=== PATIENT | female | born 1955 | race African-American/Black ===

== ENCOUNTER 2018-05-20 10:56 | Emergency (ER) | payer BC ==
[~2018-05-20] VITALS: Ht 172.7 cm; Wt 72.1 kg
[2018-05-20] MEDS ORDERED: Norco 5mg/325mg tab ORAL ONE (12:15)
--- NOTE | 2018-05-20 13:41 | Diagnostic Imaging Report ---
Indication: Elbow trauma and pain Findings: 3 views of the right elbow were obtained. There is a relatively nondisplaced intra-articular fracture of the olecranon extending into the elbow joint. Soft tissue swelling noted. Bones are osteopenic. The humerus and radius appear intact. There is no malalignment. IMPRESSION: Acute fracture of the olecranon
--- NOTE | 2018-05-20 13:42 | Diagnostic Imaging Report ---
Indication: Right knee pain Knee pain/trauma 3 views of the right knee were obtained. Findings: The bones are osteopenic. There is no malalignment or fracture. Osteophyte formation and narrowing of the joint space in all 3 compartments demonstrated. No joint effusion appreciated. Under calcinosis noted. IMPRESSION: No acute fracture appreciated. Moderate arthrosis Chondrocalcinosis
[2018-05-20] MEDS ORDERED: IBUPROFEN600 MG ORAL (14:08)
[2018-05-20] MEDS ORDERED: NORCO 5-325 TA1 EACH ORAL (14:08)
--- NOTE | 2018-05-20 14:08 | Emergency Room Report ---
History of Present Illness General Chief Complaint: Multiple Trauma/Fall Source: Patient Present Illness HPI 62-year-old female presents to the emergency department complaining of 10 out of 10 in severity localized right elbow pain in addition to right knee pain status post mechanical slip and fall at a grocery store 2 days ago. Patient and his hitting her head she denies loss of consciousness and denies midline neck or back pain. Patient states that [id number] pain medications have not provided relief for her symptoms. Denies exacerbated upon palpation and movement of the right arm as well as walking and weightbearing. Denies numbness tingling or loss of sensation or gross motor movements of the extremities, incontinence of bowel or bladder. Denies CP, Palpitations, LOC, AMS, dizziness, Changes in Vision, weakness or a sudden severe headache. Allergies: Coded Allergies: No Known Allergies (Unverified , 05/20/18) Patient History Past Medical History: see triage record Past Surgical History: none Pertinent Family History: none Now: No Reviewed Nursing Documentation: PMH: Agreed; PSxH: Agreed Nursing Documentation-PMH Past Medical History: No History, Except For Hx Cardiac Problems: No Hx Hypertension: Yes Hx Pacemaker: No Hx Asthma: No Hx COPD: No Hx Diabetes: No Hx Cancer: No Hx Gastrointestinal Problems: No Hx Dialysis: No Hx Neurological Problems: No Hx Cerebrovascular Accident: No Hx Seizures: No Review of Systems All Other Systems: negative except mentioned in HPI Physical Exam Vital Signs Date Time Temp Pulse Resp B/P (MAP) Pulse Ox O2 Delivery O2 Flow Rate FiO2 05/20/18 11:09 98.0 77 18 117/77 95 Room Air 98.1 Sp02 EP Interpretation: reviewed, normal General Appearance: no apparent distress, alert, GCS 15, non-toxic, mild distress Head: normocephalic, atraumatic ENT: hearing grossly normal, normal voice Neck: full range of motion, no bony tend Respiratory: lungs clear, normal breath sounds, speaking full sentences Cardiovascular #1: regular rate, rhythm, normal capillary refill Musculoskeletal: back normal, gait/station normal, normal range of motion, swelling - right elbow, and lateral right knee, FROM ,no increased laxity to the right knee, negative anterior or posterior drawer sign. moderate TTP to the right lateral elbow, bruising also noted. Pain with ROM. Neurologic: alert, oriented x3, responsive, motor strength/tone normal, sensory intact, speech normal, grossly normal Psychiatric: judgement/insight normal Skin: normal color, no rash, warm/dry, well hydrated, other - bruising to the lateral/posterior right elbow. Medical Decision Making PA Attestation Dr. Coronel is my supervising Physician whom patient management has been discussed with. Diagnostic Impression: Primary Impression: Radial head fracture, closed Qualified Codes: S52.124A - Nondisplaced fracture of head of right radius, initial encounter for closed fracture Additional Impressions: Right knee sprain Qualified Codes: S83.91XA - Sprain of unspecified site of right knee, initial encounter Multiple contusions ER Course 62-year-old female presents to the emergency department complaining of 10 out of 10 in severity localized right elbow pain in addition to right knee pain status post mechanical slip and fall at a grocery store 2 days ago. Patient and his hitting her head she denies loss of consciousness and denies midline neck or back pain. Patient states that [id number] pain medications have not provided relief for her symptoms. Denies exacerbated upon palpation and movement of the right arm as well as walking and weightbearing. Denies numbness tingling or loss of sensation or gross motor movements of the extremities, incontinence of bowel or bladder. Denies CP, Palpitations, LOC, AMS, dizziness, Changes in Vision, weakness or a sudden severe headache. Ddx considered but are not limited to Fracture, dislocation, contusion, Sprain/ Strain/Spasm. Vital signs: are WNL, pt. is afebrile H&PE are most consistent with musculoskeletal injury will perform imaging to r/ o fractures/dislocations. ORDERS: - X-ray Right knee 3 views - negative for fx, Dislocation, or significant soft tissue injury, per preliminary read in ED, and signed by DAVID Aviles , my supervising physician has reviewed, and agrees with my interpretation. -X-ray Right elbow 3 views: POSITIVE for Radial head FX. ED INTERVENTIONS: - Pain medication PO short arm posterior Splint applied to the right elbow by headend technician. Pt. remains neurovascularly intact. - Right arm Sling applied by headend technician. Pt. remains neurovascularly intact. Xavier wrap applied to the right knee by headend technician. Pt. remains neurovascularly intact. -Patient is provided with crutches and instructed on their use d/w pt. ortho follow up. DISCHARGE: At this time pt. is stable for d/c to home. Will provide printed patient care instructions, and any necessary prescriptions. Care plan and follow up instructions have been discussed with the patient prior to discharge. Other X-Ray Diagnostic Results Other X-Ray Diagnostic Results #1: X-Ray ordered: Right Knee # of Views/Limited Vs Complete: 3 View Indication: Pain EP Interpretation: Yes PA Xray: Interpretation reviewed, by supervising MD, and agrees with findings. Interpretation: no dislocation, no soft tissue swelling, no fractures Impression: No acute disease Electronically Signed by: Jaymie Aviles PA-C Other X-Ray Diagnostic Results #2: X-Ray ordered: Right Elbow # of Views/Limited Vs Complete: 3 View Indication: Pain EP Interpretation: Yes PA Xray: Interpretation reviewed, by supervising MD, and agrees with findings. Interpretation: no dislocation, no soft tissue swelling, other - POSITIVE for Radial head FX. Impression: Other - abormal Electronically Signed by: Jaymie Aviles PA-C Last Vital Signs Date Time Temp Pulse Resp B/P (MAP) Pulse Ox O2 Delivery O2 Flow Rate FiO2 05/20/18 11:09 98.0 77 18 117/77 95 Room Air 98.1 Disposition: HOME, SELF-CARE Condition: Stable Scripts Hydrocodone Bit/Acetaminophen 5-325* (NORCO 5-325*) 1 Each Tablet 1 TAB ORAL Q6H PRN for For Pain, #10 TAB 0 Refills Prov: Jaymie Aviles 05/20/18 Ibuprofen* (MOTRIN*) 600 Mg Tablet 600 MG ORAL THREE TIMES A DAY, #20 TAB 0 Refills Prov: Jaymie Aviles 05/20/18 Referrals: Sohail Bond MD (PCP) Patient Instructions: Contusion, [id number], Knee Sprain, [id number], Radial Head Fracture Additional Instructions: Take medications as directed. Follow up with an [facility] in 3-5 days, even if your symptoms have resolved. If symptoms persist MRI may be required at the discretion of your PCP or Ortho Specialist. --Please review list of primary care clinics, if you do not already have a primary care provider who can give you an Orthopedic Referral. Return sooner to ED if new symptoms occur, or current symptoms become worse. Do not drink alcohol, drive, or operate heavy machinery while taking [place] as this may cause drowsiness. - Please note that this Emergency Department Report was dictated using [employer] spreader operator technology software, occasionally this can lead to erroneous entry secondary to interpretation by the dictation equipment. Jaymie Aviles May 20, 2018 14:08
[2018-05-20 15:06] VITALS: BP 138/72
== END 2018-05-20 15:01 | disposition home or self-care (01) ==
LOC: EMR 13:09
DX: S52.121A Displaced fracture of head of right radius, initial encounter for closed fracture (principal); S83.91XA Sprain of unspecified site of right knee, initial encounter; S52.021A Displaced fracture of olecranon process without intraarticular extension of right ulna, initial encounter for closed fracture; S50.01XA Contusion of right elbow, initial encounter; W01.0XXA Fall on same level from slipping, tripping and stumbling without subsequent striking against object, initial encounter; Y92.512 Supermarket, store or market as the place of occurrence of the external cause; I10 Essential (primary) hypertension; M11.20 Other chondrocalcinosis, unspecified site; M17.11 Unilateral primary osteoarthritis, right knee; M85.861 Other specified disorders of bone density and structure, right lower leg
CPT/HCPCS: 99284